=== PATIENT | female | born 1940 | race Caucasian/White ===

== ENCOUNTER 2016-10-14 15:12 | Outpatient (CLI) | payer MEDICARE | END 2016-10-14 15:13 | disposition home or self-care (01) | DX: Z12.31 Encounter for screening mammogram for malignant neoplasm of breast (principal) ==

== ENCOUNTER 2016-10-14 15:13 | Outpatient (CLI) | payer MEDICARE | END 2016-10-14 15:14 | disposition home or self-care (01) | DX: Z13.820 Encounter for screening for osteoporosis (principal); M85.88 Other specified disorders of bone density and structure, other site ==

== ENCOUNTER 2018-02-22 08:00 | Outpatient (CLI) | payer MEDICARE | END 2018-02-22 08:01 | disposition home or self-care (01) | LOC: LAB.R 08:00 | PROVIDERS: ATTEND Family Medicine | DX: R19.7 Diarrhea, unspecified (principal) | CPT/HCPCS: 87493 ==

== ENCOUNTER 2019-03-01 16:46 | Outpatient (CLI) | payer MEDICARE ==
--- NOTE | 2019-03-04 11:03 | Mammography Report ---
Reason: ENCOUNTER FOR SCREENING MAMMOGRAM FOR MALIGNANT NE Procedure Date: 03/01/2019 Accession Number: [id number] / [id number] Procedure: [facility] - Screening Mammo w/Enzo CPT Code: FULL RESULT: EXAM: Screening Mammo w/Enzo DATE: 03/01/2019 5:21 PM CLINICAL HISTORY: Routine screening. History of benign right breast biopsy. TECHNIQUE: (B) - Bilateral CC and MLO views were obtained. COMPARISON: 01/19/2018, 12/19/2016, 11/26/2015, 10/15/2014. PARENCHYMAL PATTERN: (D) - The breasts demonstrate heterogeneously dense fibroglandular parenchyma bilaterally. FINDINGS: No significant interval change. There are no suspicious masses, calcifications, or areas of distortion. IMPRESSION: Negative examination. BI-RADS category 1. RECOMMENDATION: (ANNUAL) - Recommend routine annual screening mammography. BI-RADS CATEGORY: (1) - Negative. STANDARD QUALIFYING STATEMENTS: 1. This examination was not reviewed with the aid of Computer-Aided Detection (CAD). 2. A negative or benign imaging report should not preclude biopsy if clinically suspicious findings are present. 3. Dense breasts may obscure an underlying neoplasm. 4. This examination was reviewed with the aid of 3D breast imaging (tomosynthesis).
== END 2019-03-01 16:47 | disposition home or self-care (01) ==
LOC: DI 16:46
PROVIDERS: ATTEND Family Medicine
DX: Z12.31 Encounter for screening mammogram for malignant neoplasm of breast (principal)
CPT/HCPCS: 77063; 77067

== ENCOUNTER 2022-01-27 16:24 | Outpatient (CLI) | payer MEDICARE ==
[2022-01-27 17:06] LABS: ALBUMIN 4.2 g/dL (3.2-5.5); ALBUMIN/GLOBULIN RATIO 1.3 (1.0-2.2); BILIRUBIN,TOTAL 0.5 mg/dL (0.2-1.0); CALCIUM 9.3 mg/dL (8.5-10.3); CREATININE 0.8 mg/dL (0.4-1.0); POTASSIUM 3.9 mmol/L (3.5-5.0); TOTAL PROTEIN 7.5 g/dL (6.7-8.2)
[2022-01-27 17:20] LABS: THYROID STIMULATING HORMONE 2.58 uIU/mL (0.34-5.60)
== END 2022-01-27 16:25 | disposition home or self-care (01) ==
LOC: LAB 16:24
PROVIDERS: ATTEND Nurse Practitioner Family
DX: R41.89 Other symptoms and signs involving cognitive functions and awareness (principal)
CPT/HCPCS: 36415; 80053; 82607; 84443

== ENCOUNTER 2022-02-18 12:19 | Outpatient (CLI) | payer MEDICARE ==
[2022-02-18 12:44] LABS: ALBUMIN/GLOBULIN RATIO 1.1 (1.0-2.2); BILIRUBIN,TOTAL 0.9 mg/dL (0.2-1.0); CALCIUM 9.2 mg/dL (8.5-10.3); CREATININE 0.7 mg/dL (0.4-1.0); POTASSIUM 4.2 mmol/L (3.5-5.0); TOTAL PROTEIN 7.6 g/dL (6.7-8.2)
== END 2022-02-18 12:20 | disposition home or self-care (01) ==
LOC: LAB 12:19
PROVIDERS: ATTEND Nurse Practitioner Family
DX: R94.4 Abnormal results of kidney function studies (principal)
CPT/HCPCS: 36415; 80053

== ENCOUNTER 2022-02-28 13:48 | Outpatient (CLI) | payer MEDICARE ==
[2022-02-28 14:18] LABS: CHOL/HDL RATIO 3.6 (<4.4); CHOLESTEROL 249 mg/dL; HDL CHOLESTEROL 69 mg/dL; LDL CHOLESTEROL,CALCULATED 165 mg/dL; LDL/HDL RATIO 2.4 (<4.4); TRIGLYCERIDES 75 mg/dL; VLDL CHOLESTEROL 15 mg/dL
[2022-02-28 18:23] LABS: ESTIMATED AVERAGE GLUCOSE 94 mg/dL (70-100); HEMOGLOBIN A1c% 4.9 % (4.27-6.07)
== END 2022-02-28 13:49 | disposition home or self-care (01) ==
LOC: LAB 13:48
PROVIDERS: ATTEND Psychiatry & Neurology Neurology
DX: Z86.79 Personal history of other diseases of the circulatory system (principal)
CPT/HCPCS: 36415; 80061; 83036; 83721